=== PATIENT | female | born 1980 | race Two or more races ===

== ENCOUNTER 2024-01-19 15:47 | Emergency (ER) | payer OTHER ==
[~2024-01-19] VITALS: Ht 160 cm; Wt 49.9 kg
[2024-01-19] MEDS ORDERED: VENLAFAXINE HCL25 MG (16:19)
[2024-01-19] MEDS ORDERED: ALDACTONE100 MG PO (16:19)
[2024-01-19] MEDS ORDERED: CRESTOR10 MG PO (16:20)
[2024-01-19] MEDS ORDERED: CORTISPORIN EAR10 M1 OTIC (17:56)
[2024-01-19] MEDS ORDERED: TYLENOL SINUS1 EAC2 PO (17:56)
[2024-01-19] MEDS ORDERED: ADVIL DUAL ACT1 EACH PO (17:56)
== END 2024-01-19 18:02 | disposition home or self-care (01) ==
LOC: ER 15:48
DX: H60.90 Unspecified otitis externa, unspecified ear (principal)